=== PATIENT | male | born 1980 | race Asian ===

== ENCOUNTER 2018-02-02 16:16 | Emergency (ER) | payer OTHER ==
[2018-02-02 17:11] VITALS: BP 141/94
[2018-02-02] MEDS ORDERED: Ketorolac INJ* 60 MG/2 ML VIAL IM ONE (17:25)
--- NOTE | 2018-02-02 17:53 | RAD ---
HISTORY: Right knee pain COMPARISONS: February 06, 2015 VIEWS: 4, Frontal, lateral, axial, and oblique views of the right knee FINDINGS: BONE DENSITY: Normal. BONES: There is no displaced fracture. JOINTS: There is minimal medial and lateral compartment osteophytic spurring. There is moderate suprapatellar joint effusion without lipohemarthrosis. ALIGNMENT: There is no dislocation. SOFT TISSUES: Unremarkable. OTHER FINDINGS: None. IMPRESSION: MODERATE JOINT EFFUSION. NO ACUTE OSSEOUS INJURY. IF SYMPTOMS PERSIST, RECOMMEND REPEAT IMAGING
--- NOTE | 2018-02-02 19:05 | UC ---
Meka Yo Rebecca, scribed for Rupesh De Los Santos MD on 02/02/18 at 1717 . Lower Extremity/Ankle HPI - HPI Summary HPI Summary: Pt is a 37 y/o M who presents to [facility] c/o R knee pain. Patient reports the pain began Wednesday night (2 days ago) while sleeping, waking him up from sleep. Pain is on the posterior and lateral sides of the right knee and is currently moderate, ranked 5/10. Yesterday, the patient applied ice and rested. Sx aggravated by flexion and massage, alleviated by nothing, unchanged by ice and rest. Additionally c/o swelling which began today. Denies fever. He is unsure of any injury, though he reports lifting a bicycle recently. PMHx right PCL and meniscal tear 2-3 years ago during which he had severe knee swelling and is unsure if current symptoms are similar to that incident. - History of Current Complaint Chief Complaint: UCLowerExtremity Stated Complaint: LEG INJURY Time Seen by Provider: 02/02/18 17:13 Hx Obtained From: Patient Onset/Duration: Lasting Days - 2 days, Still Present Severity Currently: Moderate Pain Intensity: 5 Pain Scale Used: 0-10 Numeric Aggravating Factor(s): Other - Flexion, massage Alleviating Factor(s): Nothing - Allergies/Home Medications Allergies/Adverse Reactions: Allergies Allergy/AdvReac Type Severity Reaction Status Date / Time No Known Allergies Allergy Verified 02/12/15 16:21 PMH/Surg Hx/FS Hx/Imm Hx - Additional Past Medical History Additional PMH: PMHx: SVT No PMHx: HTN, DM, CA - Surgical History Surgical History: None - Family History Known Family History: Positive: Diabetes - Social History Alcohol Use: Rare Substance Use Type: None Smoking Status (MU): Never Smoked Tobacco Review of Systems Constitutional: Negative Skin: Negative Eyes: Negative ENT: Negative Respiratory: Negative Cardiovascular: Negative Gastrointestinal: Negative Genitourinary: Negative Motor: Negative Neurovascular: Negative Musculoskeletal: Arthralgia - R knee pain, Other: - Swelling Neurological: Negative Psychological: Negative All Other Systems Reviewed And Are Negative: Yes Physical Exam - Summary Physical Exam Summary: VITAL SIGNS: Reviewed. GENERAL: ~Patient is a well developed and nourished male who is lying comfortable in the stretcher. ~Patient is not in any acute respiratory distress. HEAD AND FACE: Normocephalic EYES: PERRLA, EOMI x 2. EARS: Hearing grossly intact. MOUTH: Oropharynx within normal limits. NECK: Supple, trachea is midline, no adenopathy, no JVD, no carotid bruit. CHEST: Symmetric, no tenderness at palpation LUNGS: Clear to auscultation bilaterally. No wheezing or crackles. CVS: Regular rate and rhythm, S1 and S2 present, no murmurs or gallops appreciated. ABDOMEN: Soft, non-tender. Bowel sounds are normal. No abdominal abnormal pulsations. EXTREMITIES: No edema, no cyanosis or clubbing. The right knee has some swelling , especially about the knee cap with decreased ROM secondary to pain. Negative drawer test. NEURO: Alert and oriented x 3. No acute neurological deficits. Speech is normal and follows commands. SKIN: Dry and warm Triage Information Reviewed: Yes Vital Signs: Initial Vital Signs Temp 99.3 F 02/02/18 17:02 Pulse 116 02/02/18 17:02 Resp 18 02/02/18 17:02 BP 141/94 02/02/18 17:02 Pulse Ox 96 02/02/18 17:02 Vital Signs Reviewed: Yes Diagnostics - Radiology Knee XR Xray Interpretation: No Acute Changes - MODERATE JOINT EFFUSION. NO ACUTE OSSEOUS INJURY. IF SYMPTOMS PERSIST, RECOMMEND REPEAT IMAGING. Physician reviewed this radiology report. Radiology Interpretation Completed By: Radiologist Re-Evaluation - Re-Evaluation First Eval Re-Evaluation Time: 18:06 Change: Improved Comment: Discussed XR results and D/C plan, including instructions to f/u with orthopedics. Answered questions. Lower Extremity Course/Dx - Course Course Of Treatment: Pt is a 37 y/o M who presents to [facility] c/o R knee pain. Patient reports the pain began Wednesday night (2 days ago) while sleeping, waking him up from sleep. Pain is on the posterior and lateral sides of the right knee and is currently moderate, ranked 5/10. Yesterday, the patient applied ice and rested which did not improve sx. Additionally c/o swelling which began today. Denies fever. He is unsure of any injury, though he reports lifting a bicycle recently. PMHx right PCL and meniscal tear 2-3 years ago during which he had severe knee swelling and is unsure if current symptoms are similar to that incident. Knee XR reveals no acute findings. He was given Toradol in the [facility] course. Pt will be D/C to home with Dx of knee pain with Rx for [place] and Motrin with a followup with orthopedics. He understands and agrees. The patient was found to have increase BP in UC. The patient will follow up with PCP for better control of BP. - Differential Dx/Diagnosis Provider Diagnoses: Right knee pain. Discharge - Sign-Out/Discharge Documenting (check all that apply): Discharge - Discharge Plan Condition: Stable Disposition: HOME Prescriptions: HYDROcodone/ACETAMIN 5-325 MG* [[place] 5-325 TAB*] 1 tab PO Q6H PRN #12 tab MDD 4 PRN Reason: Pain Ibuprofen TAB* [Motrin TAB* 600 MG] 600 mg PO Q8H PRN #30 tab PRN Reason: Pain Patient Education Materials: Knee Pain (ED), Arthralgia (ED) Referrals: Amaury Lopez MD [Medical Doctor] - 3 Days No Primary Care Phys,NOPCP [Primary Care Provider] - Additional Instructions: FOLLOW UP WITH YOUR PRIMARY CARE PROVIDER WITHIN ONE WEEK FOR HIGH BLOOD PRESSURE NOTED TODAY. Take medications as instructed Increase your fluid intake Return to the UC if symptoms worsen The documentation as recorded by the Meka rhodes Rebecca accurately reflects the service I personally performed and the decisions made by , Rupesh De Los Santos MD.
== END 2018-02-02 18:15 | disposition home or self-care (01) ==
LOC: UCEAST 16:16
DX: M25.561 Pain in right knee (principal); M25.461 Effusion, right knee
CPT/HCPCS: 96372; 99213; G0463; J1885